=== PATIENT | male | born 1985 | race Two or more races ===

== ENCOUNTER 2021-12-31 16:13 | Emergency (ER) | payer BC, MEDICAID | END 2021-12-31 16:43 | disposition left against medical advice (07) | LOC: ER 16:19 | DX: Z53.21 Procedure and treatment not carried out due to patient leaving prior to being seen by health care provider (principal) ==

== ENCOUNTER 2022-05-01 15:39 | Emergency (ER) | payer BC ==
[~2022-05-01] VITALS: Ht 177.8 cm; Wt 74.8 kg
--- NOTE | 2022-05-01 15:55 | NUR ---
DR QUINTANA AT BEDSIDE FOR EVAL
[2022-05-01] MEDS ORDERED: PROPOFOL 200 MG/20 ML VIAL IV ONE (16:00)
--- NOTE | 2022-05-01 16:17 | NUR ---
CONSENT FORM SIGNED BY PT FOR PROCEDURE: CLOSED REDUCTION OF LEFT SHOULDER UNDER MODERATE SEDATION
--- NOTE | 2022-05-01 16:30 | NUR ---
SPORTS OFFICIAL AT BEDSIDE FOR XRAY
--- NOTE | 2022-05-01 16:35 | NUR ---
RT Conscious sedation. RT on standby.
[2022-05-01] MEDS ORDERED: PROPOFOL 20 ML IV ONE (16:36)
--- NOTE | 2022-05-01 16:40 | NUR ---
MD, RT, AND TECH AT BEDSIDE FOR CLOSED REDUCTION OF LEFT SHOULDER PROCEDURE. VS TAKEN AND RECORDED. PT NOT IN ACUTE DISTRESS, NO COMPLAINT OF PAIN.
--- NOTE | 2022-05-01 16:45 | NUR ---
PROPOFOL 75MG GIVEN IV; VS: BP-149/98, HR-67, R-18, [id number]%
--- NOTE | 2022-05-01 16:46 | NUR ---
LEFT SHOULDER REDUCED BY DR QUINTANA AT BEDSIDE. VS TAKEN AND RECORDED. NO ACUTE DISTRESS.
--- NOTE | 2022-05-01 17:20 | NUR ---
IV removed. Catheter intact and site benign. Pressure and 4x4 applied to site. No bleeding noted.
--- NOTE | 2022-05-01 17:22 | NUR ---
Patient discharged to home in stable condition. Left sling in place. Written and verbal after care instructions given. Patient verbalizes understanding of instruction.
[2022-05-01 17:27] VITALS: BP 130/88
== END 2022-05-01 17:28 | disposition home or self-care (01) ==
LOC: ER 16:05
DX: S43.015A Anterior dislocation of left humerus, initial encounter (principal); X58.XXXA Exposure to other specified factors, initial encounter; Y93.89 Activity, other specified; Y92.89 Other specified places as the place of occurrence of the external cause; Y99.8 Other external cause status
CPT/HCPCS: 99285; 23650; 99152; 73020 ×2; J2704; J7030; G0500

== ENCOUNTER 2025-02-22 08:00 | Emergency (ER) | payer BC ==
[~2025-02-22] VITALS: Ht 175.3 cm; Wt 72.6 kg
[2025-02-22 08:14] VITALS: BP 146/86; TEMP 98.4
[2025-02-22 08:39] VITALS: O2SAT 98
== END 2025-02-22 08:39 | disposition home or self-care (01) ==
LOC: ER 08:19
DX: R09.A2 Foreign body sensation, throat (principal); R09.82 Postnasal drip; Z87.39 Personal history of other diseases of the musculoskeletal system and connective tissue